=== PATIENT | male | born 1975 | race Caucasian/White ===

== ENCOUNTER 2016-05-28 12:02 | Emergency (ER) | payer OTHER ==
[2016-05-28] MEDS ORDERED: NORCO-5 PO ONE (12:36)
[2016-05-28] MEDS ORDERED: ZOFRAN ODT PO ONE (12:36)
--- NOTE | 2016-05-28 14:05 | PROVIDER DOCUMENTATION ---
HPI-Musculoskeletal Pain/Inj - GENERAL Chief Complaint: Extremity Injury Stated Complaint: EXTREMITY PAIN Time Seen by Provider: 05/28/16 12:33 Source: patient - HX OF PRESENT ILLNESS-MUSKULOSKELTAL Nature of Presenting Problem: This pt presents today c complaints of R sided ankle pain after twisting it last night. He reports a hx of tib/fib fracture c ORIF and is also a chronic pain pt. No loss of motor function or sensation. There is no obvious injury noted. Quality of Pain: reports: sharp Severity in ED: moderate Onset/Duration: last night Timing: still present Modifying Factors: improves with: movement, palpation Any recent injury?: Yes Locality of Occurance: Home Similar Symptoms Previously?: Yes Recently seen or treated by another doctor?: No Review of Systems - Adult - REVIEW OF SYSTEMS - ADULT Constitutional: reports: no symptoms reported. denies: chills, fever Eyes: reports: no symptoms reported. denies: discharge, dry eyes Ears, Nose, Mouth & Throat: reports: no symptoms reported. denies: ear discharge, ear pain Cardiovascular: reports: no symptoms reported. denies: chest pain, edema Respiratory: reports: no symptoms reported. denies: chronic cough, cough Gastrointestinal: reports: no symptoms reported. denies: abdominal pain, hematemesis Genitourinary: reports: no symptoms reported. denies: dysuria, discharge Musculoskeletal: reports: joint pain. denies: bone pain, back pain, muscle aches Integumentary: reports: no symptoms reported. denies: hives, hair loss Neurological: reports: no symptoms reported. denies: ataxia, dizziness/vertigo Psychiatric: reports: no symptoms reported. denies: anxiety, anti-depressant use Endocrine: reports: no symptoms reported Hematologic/Lymphatic: reports: no symptoms reported Allergic/Immunologic: reports: no symptoms reported All Other Systems: Reviewed and Negative Past History - Adult - PAST MEDICAL HISTORY-ADULT Review of Records: reports: Old Records Reviewed, Nursing Assessment Review, Medications Reviewed, Social history reviewed & non-contributory. Major Childhood Illnesses: reports: denies history Cardiovascular: reports: CAD, HTN, [place] Respiratory: reports: denies history Gastrointestinal: reports: denies history Obstetrical/Gynecological: reports: denies history Genitourinary: reports: denies history Musculoskeletal: reports: chronic pain, neck/back injury, orthopedic injury ( ANKLE /TIB-FIB FX) Neurological: reports: denies history Psychiatric: reports: anxiety Endocrine/Immune: reports: denies history Other Conditions: reports: denies history - PRIOR SURGERIES/PROCEDURES Surgical/Procedure History: reports: cardiac stent, orthopedic (extremity) ( multiple orthopedic surgeries to repair crushed right ankle) - IMMUNIZATION STATUS Childhood Immunizations: UTD, See Nurse Assessment Flu Vaccine: See Nurse Assessment - FAMILY HISTORY Family History: reviewed, not pertinent Physical Exam-Injury Related - Physical Exam-Injury Related Initial Vital Signs Reviewed: Yes General Appearance: appears well, alert, no apparent distress Eyes: PERRL/EOMI, pink conjunctivae Head, Ears, Nose, Mouth & Throat: normocephalic/atraumatic, moist mucous membranes, normal ENT inspection Neck: non-tender, full range of motion, supple Respiratory: chest non-tender, lungs clear, normal breath sounds, no pleuratic chest pain, no respiratory distress, no accessory muscle use Cardiovascular: normal peripheral pulses, regular rate, rhythm, no edema, no gallop, no JVD, no murmur Peripheral Pulses: dorsalis-pedis (R): 2+, dorsalis-pedis (L): 2+ Abdominal Exam: normal bowel sounds, non tender, soft Back Exam: normal inspection Extremity: normal range of motion, tenderness, other (scars from previous surgery noted to R ankle). negative: pulse deficit, pedal edema, swelling Integumentary: normal color, warm/dry, blanching Neurologic: grossly normal, no motor/sensory deficits Psych/Mental Status: normal mood/affect, normal thought content, normal thought process, oriented x 3 Progress - PLAN OF CARE/RESULTS Progress/Plan/Lab Results: Orders Category Date Time Status Teodoro Wrap Application DIRECTED Care 05/28/16 13:59 Active ANKLE COMPLETE RIGHT [RAD] Stat Exams 05/28/16 12:36 Taken Hydrocodone/APAP 5 mg/325 mg [Berkeley-5] Med 05/28/16 12:36 Discontinued 1 each PO NOW ONE Ondansetron Odt [Zofran Odt] Med 05/28/16 12:36 Discontinued 4 mg PO NOW ONE Vital Signs Temp Pulse Resp BP Pulse Ox 05/28/16 12:12 99.2 F 82 18 133/090 96 cyclobenzaprine HCl * [From Flexeril] Allergy (Verified 05/08/16 20:49) HIVES trazodone Allergy (Verified 05/08/16 20:49) SWELLING Gabapentin 600 mg .ROUTE 4XDAY 05/28/16 Hydrocodone/APAP 10 mg/325 mg [Berkeley-10] 10 mg PO 4XDAY 05/28/16 Pt is requesting dilaudid. I informed him that we have already given him narcotic pain medications and his injury does not warrant any further pain meds. I advised him to take his prescribed Berkeley 10mg when gets home. He is in agreement. - XRAY 1 XRAY: Right XRAY Study: Ankle XRAY Interpretation: nad Departure - Departure Time of Disposition Order: 14:04 DIAGNOSIS: Right ankle sprain Qualifiers: Encounter type: initial encounter Involved ligament of ankle: unspecified ligament Qualified Code(s): S93.401A - Sprain of unspecified ligament of right ankle, initial encounter Disposition: HOME 01 Certified Medical Emergency: Urgent Condition: Good Additional Instructions: Rest, ice and elevate. Take medications as prescribed along with your current prescriptions. Follow up with an orthopedist for continued pain. ED Follow Up Instructions: You have been treated by a care provider in the Emergency Department. These instructions are being provided to you so you can have an understanding of how to care for yourself upon discharge. Upon discharge from the Emergency Department, you are responsible for making arrangements for follow-up care by a physician of your choice. Take all prescribed medications as directed. Return to the Emergency Department immediately for any new or worsening symptoms. You may call the Physician Referral phone number at [phone] to obtain a list of Physicians who are taking new patients. Prescriptions: Meloxicam [Mobic] 7.5 mg PO DAILY PRN PRN #15 tablet PRN Reason: Pain Orphenadrine [Norflex] 100 mg PO BID #14 tablet Referrals: None,PCP [Primary Care Provider] - Tyson Whyte MD [STAFF PHYSICIAN] - Attestation - Physician/ ARIN Attestation Patient care was provided by Advanced Practice Provider:: Yes Advanced Practice Provider:: Nader Harrell Advanced Practice Provider documentation review:: The Mid-level provider documentation, treatment plan and medical decision making was reviewed by the physician who agrees with all treatment and medical decision making by the P.
[2016-05-28 14:43] VITALS: BP 125/82
--- NOTE | 2016-05-28 14:55 | Diag Imaging Result Document ---
PROCEDURE NAME: ANKLE COMPLETE RIGHT - 05/28/2016 RIGHT ANKLE, 3 VIEWS FINDINGS: There has been prior fusion of the distal tibia and fibula. 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 No fracture. No dislocation. IMPRESSION: No acute bony injury.
== END 2016-05-28 14:44 | disposition home or self-care (01) ==
LOC: P.ED 12:02
DX: S93.401A Sprain of unspecified ligament of right ankle, initial encounter (principal); M25.571 Pain in right ankle and joints of right foot; I25.10 Atherosclerotic heart disease of native coronary artery without angina pectoris; I10 Essential (primary) hypertension; I25.2 Old myocardial infarction; M54.2 Cervicalgia; G89.29 Other chronic pain; Z95.5 Presence of coronary angioplasty implant and graft
CPT/HCPCS: 99283

== ENCOUNTER 2016-05-30 07:33 | Emergency (ER) ==
[2016-05-30 07:50] VITALS: BP 111/87
[2016-05-30] MEDS ORDERED: NORFLEX IM ONE (09:28)
[2016-05-30] MEDS ORDERED: TORADOL IM ONE (09:28)
--- NOTE | 2016-05-30 10:01 | PROVIDER DOCUMENTATION ---
HPI-Musculoskeletal Pain/Inj - GENERAL Source: patient - HX OF PRESENT ILLNESS-MUSKULOSKELTAL Quality of Pain: reports: aching Severity in ED: moderate Onset/Duration: 24 hours ago Timing: still present Modifying Factors: worse with: movement Any recent injury?: Yes Locality of Occurance: Home Similar Symptoms Previously?: Yes Recently seen or treated by another doctor?: Yes <Elizabet Magallon - Last Filed: 05/30/16 09:58> <Noni Perea - Last Filed: 05/30/16 10:06> - GENERAL Chief Complaint: Back Pain Stated Complaint: BACK INJURY Time Seen by Provider: 05/30/16 09:06 - HX OF PRESENT ILLNESS-MUSKULOSKELTAL Nature of Presenting Problem: Presents to er with cc of back pain radiating to LLE reports tried changing tire 3-4 days ago. Was seen on 05/28/16 for right ankle pain which reports right ankle is better now. Back sx in 2007 for DDD. (Elizabet Magallon) Pt denies any bowel/bladder dysfunction, saddle anesthesia, numbness. (Noni Perea) Review of Systems - Adult - REVIEW OF SYSTEMS - ADULT Constitutional: denies: chills, fever, fatique Eyes: reports: no symptoms reported Ears, Nose, Mouth & Throat: reports: no symptoms reported Cardiovascular: denies: chest pain, irregular heart rate, orthopnea Respiratory: reports: no symptoms reported Gastrointestinal: reports: no symptoms reported Genitourinary: reports: no symptoms reported Musculoskeletal: reports: see HPI, back pain. denies: joint pain, joint swelling, muscle aches Integumentary: reports: no symptoms reported Neurological: reports: no symptoms reported Psychiatric: reports: no symptoms reported Endocrine: reports: no symptoms reported Hematologic/Lymphatic: reports: no symptoms reported Allergic/Immunologic: reports: no symptoms reported All Other Systems: Reviewed and Negative <Elizabet Magallon - Last Filed: 05/30/16 09:58> Past History - Adult - PAST MEDICAL HISTORY-ADULT Review of Records: reports: Nursing Assessment Review, Medications Reviewed Major Childhood Illnesses: reports: denies history Cardiovascular: reports: CAD, HTN, [place] Respiratory: reports: denies history Gastrointestinal: reports: denies history Obstetrical/Gynecological: reports: denies history Genitourinary: reports: denies history Musculoskeletal: reports: chronic pain, neck/back injury, orthopedic injury ( ANKLE /TIB-FIB FX) Neurological: reports: denies history Psychiatric: reports: anxiety Endocrine/Immune: reports: denies history Other Conditions: reports: denies history - PRIOR SURGERIES/PROCEDURES Surgical/Procedure History: reports: cardiac stent, orthopedic (extremity) ( multiple orthopedic surgeries to repair crushed right ankle) - IMMUNIZATION STATUS Childhood Immunizations: UTD, See Nurse Assessment Flu Vaccine: See Nurse Assessment - FAMILY HISTORY Family History: reviewed, not pertinent - SOCIAL HISTORY Smoking: cigarettes, less than 1 pack/day Provider spent 3-5 mins advising pt. on dangers of tobacco.: Discussed manners to quit use, and f/u contacts for add'l counseling. Substance Use: none/never <Elizabet Magallon - Last Filed: 05/30/16 09:58> Physical Exam-Injury Related - Physical Exam-Injury Related Initial Vital Signs Reviewed: Yes General Appearance: appears well, alert, no apparent distress Eyes: PERRL/EOMI Neck: non-tender, full range of motion, supple, normal inspection Respiratory: chest non-tender, lungs clear, normal breath sounds, no pleuratic chest pain, no respiratory distress, no accessory muscle use Cardiovascular: regular rate, rhythm, no edema, no gallop, no JVD, no murmur Peripheral Pulses: dorsalis-pedis (R): 2+, dorsalis-pedis (L): 2+ Abdominal Exam: normal bowel sounds, non tender, soft, no organomegaly, no pulsatile mass Back Exam: no CVA tenderness, other (ttp left lower back; positive straight left leg raise) Extremity: non-tender, normal gait, no pedal edema, no calf tenderness, normal capillary refill Integumentary: normal color, warm/dry Psych/Mental Status: normal mood/affect, normal thought content, normal thought process, oriented x 3 - Glascow Coma Score Best Eye Response (Dexter): (4) open spontaneously Best Verbal Response (Dexter): (5) oriented Best Motor Response (Sravanthi): (6) obeys commands Dexter Total: 15 <Elizabet Magallon - Last Filed: 05/30/16 09:58> Progress <Elizabet Magallon - Last Filed: 05/30/16 09:58> - XRAY 1 XRAY Study: Lumbar Spine XRAY Interpretation: No fx or subluxation <Noni Perea - Last Filed: 05/30/16 10:06> - PLAN OF CARE/RESULTS Progress/Plan/Lab Results: Orders Category Date Time Status LUMBAR SPINE [RAD] Stat Exams 05/30/16 09:28 Taken Ketorolac [Toradol] Med 05/30/16 09:28 Discontinued 60 mg IM NOW ONE Orphenadrine [Norflex] Med 05/30/16 09:28 Discontinued 60 mg IM NOW ONE Vital Signs - 24 hr 05/30/16 07:48 Temperature 98.2 F Pulse Rate 107 H Respiratory 18 Rate Blood Pressure 111/87 O2 Sat by Pulse 99 Oximetry (Elizabet Magallon) Orders Category Date Time Status LUMBAR SPINE [RAD] Stat Exams 05/30/16 09:28 Taken Ketorolac [Toradol] Med 05/30/16 09:28 Discontinued 60 mg IM NOW ONE Orphenadrine [Norflex] Med 05/30/16 09:28 Discontinued 60 mg IM NOW ONE Discussed continued medication use and f/u with specialist for further management. (Noni Perea) Departure <Elizabet Magallon - Last Filed: 05/30/16 09:58> - Departure Time of Disposition Order: 10:02 Certified Medical Emergency: Emergent <Noni Perea - Last Filed: 05/30/16 10:06> - Departure DIAGNOSIS: Back pain Qualifiers: Back pain location: low back pain Chronicity: unspecified Back pain laterality : left Sciatica presence: with sciatica Sciatica laterality: sciatica of left side Qualified Code(s): M54.42 - Lumbago with sciatica, left side Disposition: HOME 01 Condition: Stable Additional Instructions: Heat and ice as needed. Continue taking medications as directed. Follow up with specialist for further management. ED Follow Up Instructions: You have been treated by a care provider in the Emergency Department. These instructions are being provided to you so you can have an understanding of how to care for yourself upon discharge. Upon discharge from the Emergency Department, you are responsible for making arrangements for follow-up care by a physician of your choice. Take all prescribed medications as directed. Return to the Emergency Department immediately for any new or worsening symptoms. You may call the Physician Referral phone number at [phone] to obtain a list of Physicians who are taking new patients. Referrals: None,PCP [Primary Care Provider] - Sukhi Blank MD [STAFF PHYSICIAN] - Attestation - Scribe Verification/Attestation Scribe:: Elizabet Magallon Acting as Scribe for:: Noni Perea Scribe documention review:: This chart was documented by a scribe and accurately reflects the service the provider performed and the decisions made by the provider. <Elizabet Magallon - Last Filed: 05/30/16 09:58> Physician Attestation
--- NOTE | 2016-05-30 10:29 | Diag Imaging Result Document ---
PROCEDURE NAME: LUMBAR SPINE - 05/30/2016 LUMBAR SPINE AP AND LATERAL WITH OBLIQUES, SIX VIEWS: FINDINGS: There is slight curvature to the spine. No compressed vertebra. No subluxation. There are small degenerative bone spurs. IMPRESSION: Mild scoliosis with mild degenerative changes.
== END 2016-05-30 10:20 | disposition left against medical advice (07) ==
LOC: ED 07:33
DX: M54.42 Lumbago with sciatica, left side (principal); M79.605 Pain in left leg; I25.10 Atherosclerotic heart disease of native coronary artery without angina pectoris; I10 Essential (primary) hypertension; I25.2 Old myocardial infarction; G89.29 Other chronic pain; F17.210 Nicotine dependence, cigarettes, uncomplicated; Z71.6 Tobacco abuse counseling; Z95.5 Presence of coronary angioplasty implant and graft
CPT/HCPCS: 72110; 96372; J1885